=== PATIENT | female | born 2000 | race American Indian/Alaskan Native ===

== ENCOUNTER 2019-12-21 20:19 | Emergency (ER) | payer MEDICAID, OTHER ==
[2019-12-21 21:17] VITALS: BP 108/67
[2019-12-21 23:11] LABS: Basophils # (Auto) 0.1 K/mm3 (0.0-0.1); Basophils % (Auto) 0.5 % (0.0-1.8); Eosinophils # (Auto) 0.2 K/mm3 (0.0-0.4); Eosinophils % (Auto) 1.2 % (0.0-4.3); Hematocrit 41.2 % (30.3-42.9); Hemoglobin 13.8 gm/dl (10.1-14.3); Lymphocytes % (Auto) 23.3 % (13.4-35.0); Mean Corpuscular HGB Conc 34 % (30-34); Mean Corpuscular Volume 88 fl (79-97); Monocytes # (Auto) 0.8 K/mm3 (0.0-0.8); Monocytes % (Auto) 6.4 % (0.0-7.3); Platelet Count 239 K/mm3 (140-440); Red Blood Count 4.66 M/mm3 (3.65-5.03); Red Cell Distribution Width 13.9 % (13.2-15.2)
--- NOTE | 2019-12-22 01:01 | Ultrasound Report ---
TRANSABDOMINAL OB PELVIC ULTRASOUND INDICATION / CLINICAL INFORMATION: 8 weeks with vaginal bleeding. COMPARISON: None available. FINDINGS: There is an intrauterine gestational sac with a pole and yolk sac. The estimated gestational ag e is 6 weeks by crown-rump length. The sonographic EDC is 08/16/2020. The heart rate is 112 bpm. I see no evidence of implantation hemorrhage. The right ovary measures 2.6 x 2.0 x 2.3 cm and demonstrates normal blood flow on Doppler exam. The l eft ovary is not seen. There is no evidence of adnexal mass or free fluid. The uterine cervix measure s approximately 2.6 cm in length and the internal os is closed. IMPRESSION: Single viable 6 week intrauterine without complication. Signer Name: Tommy Johnson MD Signed: 12/22/2019 12:57 AM Workstation Name: [id number]
--- NOTE | 2019-12-22 06:05 | Emergency Department Report ---
ED Female HPI - General Chief complaint: Vaginal Bleeding Stated complaint: 8WKS /HEAVY BLEEDING Time Seen by Provider: 12/22/19 04:42 Source: patient Mode of arrival: Ambulatory Limitations: No Limitations - History of Present Illness Initial comments: 19-year-old female that emerge department complaining 1-1/2-day history of spotting which has progressed to vaginal bleeding and now back to spotting associated with vague pelvic pressure but no fever, chills, sweats no hematuria no no no dysuria no hematemesis no hematochezia no diarrhea. No MD Complaint: vaginal bleeding Radiation: non-radiating Severity: mild Quality: dull Consistency: constant Improves with: none Worsens with: none Are you Now?: Yes Associated Symptoms: vaginal bleeding. denies: nausea/vomiting, loss of appetite, dysuria, hematuria, shortness of breath, syncope - Related Data Allergies Allergy/AdvReac Type Severity Reaction Status Date / Time No Known Allergies Allergy Unverified 12/21/19 21:16 ED Review of Systems ROS: Stated complaint: 8WKS /HEAVY BLEEDING Other details as noted in HPI Comment: All other systems reviewed and negative ED Past Medical Hx - Past Medical History Previous Medical History?: No - Surgical History Past Surgical History?: Yes Hx Appendectomy: Yes - Social History Smoking Status: Never Smoker ED Physical Exam - General Limitations: No Limitations General appearance: alert, in no apparent distress - Head Head exam: Present: atraumatic, normocephalic - Eye Eye exam: Present: normal appearance - ENT ENT exam: Present: mucous membranes moist - Neck Neck exam: Present: normal inspection - Respiratory Respiratory exam: Present: normal lung sounds bilaterally. Absent: respiratory distress - Cardiovascular Cardiovascular Exam: Present: regular rate, normal rhythm. Absent: systolic murmur, diastolic murmur, rubs, gallop - GI/Abdominal GI/Abdominal exam: Present: soft, normal bowel sounds - Extremities Exam Extremities exam: Present: normal inspection - Back Exam Back exam: Present: normal inspection - Neurological Exam Neurological exam: Present: alert, oriented X3 - Psychiatric Psychiatric exam: Present: normal affect, normal mood - Skin Skin exam: Present: warm, dry, intact, normal color. Absent: rash ED Course Vital Signs 12/21/19 21:14 Temperature 98.4 F Pulse Rate 107 H Respiratory 17 Rate Blood Pressure 108/67 O2 Sat by Pulse 97 Oximetry ED Medical Decision Making - Lab Data Result diagrams: 12/21/19 22:30 - Radiology Data Radiology results: report reviewed Referring Physician:PETERSON WATSONPatient Name:PRATEEK Chapman ID:[id number] of :[id number]:FemaleAccession:[id number] Date:[id number] Status:Finalized Findings [facility] [address] [place] [address] Ultrasound Report Signed Patient: PRATEEK WALSH R#: [id number] : 2000 Acct:[id number] Age/Sex: 19 / F ADM Date: 12/21/19 Loc: ED Attending Dr: Ordering Physician: PETERSON WATSON MD Date of Service: 12/21/19 Procedure(s): US OB <= 14 weeks fetus Accession Number(s): [id number] cc: PETERSON WATSON MD TRANSABDOMINAL OB PELVIC ULTRASOUND INDICATION / CLINICAL INFORMATION: 8 weeks with vaginal bleeding. COMPARISON: None available. FINDINGS: There is an intrauterine gestational sac with a pole and yolk sac. The estimated gestational age is 6 weeks by crown-rump length. The sonographic EDC is 08/16/2020. The heart rate is 112 bpm. I see no evidence of implantation hemorrhage. The right ovary measures 2.6 x 2.0 x 2.3 cm and demonstrates normal blood flow on Doppler exam. The left ovary is not seen. There is no evidence of adnexal mass or free fluid. The uterine cervix measures approximately 2.6 cm in length and the internal os is closed. IMPRESSION: Single viable 6 week intrauterine without complication. Signer Name: Tommy Johnson MD Signed: 12/22/2019 12:57 AM Workstation Name: [id number] Transcribed By: RT Dictated By: Tommy Johnson MD Electronically Authenticated By: Tommy Johnson MD Signed Date/Time: 12/22/1957 DD/ TD/TT: - Medical Decision Making This patient presents with vaginal bleeding in the first trimester, differential diagnosis includes ectopic , IUP, month threatened/inevit able , along with a completed . Patient is HDS and without a history of coagulopathy or infectious symptoms. The ultrasound does reveal an IUP at 6 weeks with an elevated hCG quant Based on exam history and ED work-up patient presentation is not consistent with an ectopic , life-threatening coagulopathy, trauma, serious bacterial infection, central process or other emergency Critical care attestation.: If time is entered above; I have spent that time in minutes in the direct care of this critically ill patient, excluding procedure time. ED Disposition Clinical Impression: Threatened miscarriage in early Disposition: DC-01 TO HOME OR SELFCARE Is pt being admited?: No Does the pt Need Aspirin: No Condition: Stable Instructions: Threatened Miscarriage (ED) Referrals: PRIMARY CARE, [Primary Care Provider] - 3-5 Days [facility] [Provider Group] - 3-5 Days
== END 2019-12-22 06:10 | disposition home or self-care (01) ==
LOC: ED 20:19
DX: O20.0 Threatened abortion (principal); Z90.49 Acquired absence of other specified parts of digestive tract; Z3A.08 8 weeks gestation of pregnancy
CPT/HCPCS: 36415; 76801; 84702; 85025; 86900; 86901

== ENCOUNTER 2020-04-04 21:54 | Outpatient (CLI) | payer MEDICAID, OTHER ==
[2020-04-04 22:27] VITALS: BP 115/67
[2020-04-04 23:09] LABS: Bilirubin,Urine NEG (Negative); Blood,Urine NEG (Negative); Color,Urine Yellow (Yellow); Mucus,Urine 2+ /HPF; Urobilinogen,Urine < 2.0 mg/dL (<2.0)
[2020-04-04] MEDS ORDERED: LACTATED RINGERS 1,000 ML IV ONE (23:20)
== END 2020-04-05 00:36 | disposition home or self-care (01) ==
LOC: TRG 21:54 → APU 04-05 00:23 → TRG 04-05 00:36
PROVIDERS: ATTEND Obstetrics & Gynecology
DX: O26.892 Other specified pregnancy related conditions, second trimester (principal); R10.30 Lower abdominal pain, unspecified; O47.02 False labor before 37 completed weeks of gestation, second trimester; Z3A.21 21 weeks gestation of pregnancy
CPT/HCPCS: 59025; 81001; J7120; 96360